=== PATIENT | female | born 1985 | race Caucasian/White ===

== ENCOUNTER 2017-01-27 22:12 | Emergency (ER) | payer BC ==
[~2017-01-27] VITALS: Ht 165.1 cm; Wt 62.0 kg
[2017-01-27 22:16] VITALS: TEMP 36.6; Ht 165.1 cm; Wt 62.0 kg
[2017-01-27] MEDS ORDERED: ONDANSETRON INJ 2 MG/ML 2 ML VIAL IV STA (22:33)
[2017-01-27] MEDS ORDERED: MoRPHine SULFATE 10 MG/ML CARP/VIAL IV STA (22:33)
[2017-01-27] MEDS ORDERED: KETOROLAC TROMETHAMINE 30 MG/ML VIAL IV STA (22:33)
[2017-01-27] MEDS ORDERED: SODIUM CHLORIDE 0.9% 1000ML 1,000 ML IV STA ×2 (22:33)
[2017-01-27 22:46] LABS: BASO % 1.1 %; BASO ABS # 0.07 K/uL (0-0.2); COMPLETE YES; EOS % 8.7 %; LYMPH % 41.4 %; LYMPH ABS # 2.66 K/uL (1.2-3.4); MEAN CORPUSCULAR HEMOGLOBIN 29.2 pg (25-34); MEAN CORPUSCULAR HGB CONC 33.2 g/dl (32-36); MEAN PLATELET VOLUME 9.5 fL (7.4-10.4); MONO % 12.1 %; NEUT % 36.7 %; PLATELET COUNT 252 K/uL (130-400); RED BLOOD COUNT 4.32 M/uL (4.2-5.4); WHITE BLOOD COUNT 6.43 K/uL (4.8-10.8)
[2017-01-27] MEDS ORDERED: FEXO1TAB58 PO (22:59)
[2017-01-27] MEDS ORDERED: SYMIN8045 PO (22:59)
[2017-01-27 23:00] LABS: BUN/CREATININE RATIO 16.6 (10-20); CREATININE 0.85 mg/dl (0.60-1.20); POTASSIUM 3.7 mmol/L (3.5-5.1)
[2017-01-27 23:03] LABS: CALCIUM 8.3 mg/dl (8.5-10.1)
[2017-01-27 23:05] LABS: URINE APPEARANCE CLEAR (CLEAR); URINE BILIRUBIN NEG (NEG); URINE COLOR YELLOW; URINE NITRITE NEG (NEG); URINE PH 6.5 (4.5-7.5); URINE SPECIFIC GRAVITY 1.023 (1.000-1.030); UROBILINOGEN NEG (NEG)
[2017-01-27 23:15] LABS: MANUAL MICROSCOPIC REQUIRED? NO; REVIEW REQ? NO
[2017-01-28] MEDS ORDERED: OXYC1TAB3 PO (01:14)
--- NOTE | 2017-01-28 01:14 | EMERGENCY ROOM VISIT NOTE ---
ED Visit Note First contact with patient: 22:19 CHIEF COMPLAINT: Right flank pain times one day HISTORY OF PRESENT ILLNESS: Patient is a 31-year-old white female who presents emergency department for evaluation of right flank pain. She states that she noticed a dull, deep, aching pain in her right low back after dinner last evening. It was constant, but tolerable. She states that it woke her up a couple times overnight. Today she was at a [employer] [place] all day in [place]. The pain steadily increased throughout the day. At time she noticed a wrapping around to the right lower quadrant. She tried taking ibuprofen and was seen by a chiropractor without relief. She presently rates her pain an 8/ 10. She denies any dysuria, frequency, urgency or hematuria. No nausea or vomiting. No fever or chills. She has had difficulty getting comfortable due to the pain. Her last menstrual period was 3 weeks ago. She just stopped breast-feeding and this is only her second menstrual cycle. She denies any significant gynecologic history, including a history of ovarian cysts. She status post cholecystectomy. REVIEW OF SYSTEMS: Review of systems as per HPI. All other systems reviewed were negative. 10 systems reviewed. PMH: Electronic medical records are reviewed and summarized as above/below. See Problem List. SOCIAL HISTORY: Patient lives at home with her and children. Employed. Nonsmoker. PHYSICAL EXAM: Vital Signs: Reviewed Nurse's notes. CONSTITUTIONAL: Patient is a well-appearing 31-year-old white female who is awake and alert and in no acute distress. EYES: Pupils equal, round, reactive to light and accommodation. EOMs intact without nystagmus. Sclera are anicteric. ENT: Tympanic membranes intact, with normal landmarks. External canals are clear. Oral and nasopharynx are clear. Mucous membranes are moist, no lesions , tongue and gums appear normal. NECK: No bruits auscultated. Supple without lymphadenopathy. No thyromegaly. No meningeal signs. Full active range of motion without discomfort. CARDIOVASCULAR: Regular rate and rhythm, with normal S1 and S2, no murmur or gallop or rub is heard. No carotid bruits auscultated. No JVD. Peripheral pulses easily palpable. RESPIRATORY: Breath sounds equal and clear to auscultation without wheezes, rales, or rhonchi heard. Full and equal chest expansion without accessory muscle use or retractions. ABDOMEN: Bowel sounds are present. Abdomen is soft, scaphoid, nontender and nondistended. There is no pain in the right lower quadrant over McBurney's point. No guarding or rebound. Positive right CVA tenderness. INTEGUMENTARY: No lesions or rash, normal skin turgor. LYMPH: No lymphadenopathy. EMERGENCY DEPARTMENT COURSE: The patient was seen and evaluated as above. IV lock was initiated. She was hydrated with normal saline solution. She was medicated with Zofran 4 mg, Toradol 30 mg and morphine 6 mg IV. CBC with differential, BMP and urinalysis and urine test were performed. Laboratory studies were unremarkable. There is no evidence for leukocytosis or anemia. No electrolyte imbalance or renal function abnormalities noted. Urinalysis was completely clear. test is negative. Given the right flank pain, CT scan of the abdomen and pelvis was ordered. Per [employer], there was no urolithiasis, no hydronephrosis. No free air. Postsurgical changes consistent with cholecystectomy. Appendix was normal in caliber. No adjacent inflammation to suspect appendicitis. Small appendicolith. There was a 2.7 cm right adnexal cyst. CT scan findings were reviewed with the patient. To evaluate this cyst thoroughly, pelvic ultrasound was ordered. Ultrasound was pending at change of shift, and care was signed out to Yeimi Richmond PA-C pending the ultrasound results. Differential diagnoses entertained included UTI, pyelonephritis, renal colic, appendicitis, , ectopic , ovarian cyst, tubo-ovarian abscess, bowel section, perforation, musculoskeletal injury, among others. Problem List Medical Problems: (1) Asthma Status: Chronic Surgical Problems: (1) Hx of cholecystectomy Status: Resolved Current/Historical Medications Scheduled Budesonide/Formoterol Fumarate (Symbicort 80-4.5 Mcg/Act), 1 PUFF PO BID Fexofenadine-Pseudoephedrine (Tegan-D 24 Hour Allergy), 1 TAB PO DAILY Scheduled PRN Oxycodone Ir (Roxicodone Ir), 1-2 TAB PO Q4H PRN for Severe Pain Allergies Coded Allergies: Milk (Verified Allergy, Intermediate, hives, 01/27/17) Uncoded Allergies: PENICILLIN (Allergy, Intermediate, hives, 01/27/17) Vital Signs Date Time Temp Pulse Resp B/P (MAP) Pulse Ox O2 Delivery O2 Flow Rate FiO2 01/28/17 03:05 67 18 102/65 98 01/28/17 01:56 65 18 110/73 98 Room Air 01/27/17 23:54 90 18 111/70 99 Room Air 01/27/17 22:16 36.6 85 18 114/69 100 Room Air Laboratory Results 01/27/17 22:35 Red Blood Count 4.32, Mean Corpuscular Volume 88.0, Mean Corpuscular Hemoglobin 29.2, Mean Corpuscular Hemoglobin Concent 33.2, Mean Platelet Volume 9.5, Neutrophils (%) (Auto) 36.7, Lymphocytes (%) (Auto) 41.4, Monocytes (%) (Auto) 12.1, Eosinophils (%) (Auto) 8.7, Basophils (%) (Auto) 1.1, Neutrophils # (Auto ) 2.36, Lymphocytes # (Auto) 2.66, Monocytes # (Auto) 0.78, Eosinophils # (Auto ) 0.56, Basophils # (Auto) 0.07 01/27/17 22:35 Test 01/27/17 22:35 01/27/17 22:50 White Blood Count 6.43 K/uL (4.8-10.8) Red Blood Count 4.32 M/uL (4.2-5.4) Hemoglobin 12.6 g/dL (12.0-16.0) Hematocrit 38.0 % (37-47) Mean Corpuscular Volume 88.0 fL (80-100) Mean Corpuscular Hemoglobin 29.2 pg (25-34) Mean Corpuscular Hemoglobin Concent 33.2 g/dl (32-36) Platelet Count 252 K/uL (130-400) Mean Platelet Volume 9.5 fL (7.4-10.4) Neutrophils (%) (Auto) 36.7 % Lymphocytes (%) (Auto) 41.4 % Monocytes (%) (Auto) 12.1 % Eosinophils (%) (Auto) 8.7 % Basophils (%) (Auto) 1.1 % Neutrophils # (Auto) 2.36 K/uL (1.4-6.5) Lymphocytes # (Auto) 2.66 K/uL (1.2-3.4) Monocytes # (Auto) 0.78 K/uL (0.11-0.59) Eosinophils # (Auto) 0.56 K/uL (0-0.5) Basophils # (Auto) 0.07 K/uL (0-0.2) RDW Standard Deviation 41.2 fL (36.4-46.3) RDW Coefficient of Variation 12.8 % (11.5-14.5) Immature Granulocyte % (Auto) 0.0 % Immature Granulocyte # (Auto) 0.00 K/uL (0.00-0.02) Anion Gap 9.0 mmol/L (3-11) Est Creatinine Clear Calc Drug Dose 87.9 ml/min Estimated GFR () 107.3 Estimated GFR (Non- 92.6 BUN/Creatinine Ratio 16.6 (10-20) Calcium Level 8.3 mg/dl (8.5-10.1) Urine Color YELLOW Urine Appearance CLEAR (CLEAR) Urine pH 6.5 (4.5-7.5) Urine Specific [place] 1.023 (1.000-1.030) Urine Protein NEG (NEG) Urine Glucose (UA) NEG (NEG) Urine Ketones NEG (NEG) Urine Occult Blood NEG (NEG) Urine Nitrite NEG (NEG) Urine Bilirubin NEG (NEG) Urine Urobilinogen NEG (NEG) Urine Leukocyte Esterase NEG (NEG) Urine Test NEG (NEG) Medications Administered Medications (Trade) Dose Ordered Sig/Brittni Route Start Time Stop Time Status Last Admin Dose Admin Sodium Chloride 1,000 ml @ 999 mls/hr Q1H1M STAT IV 01/27/17 22:33 01/27/17 23:33 DC 01/27/17 22:33 999 MLS/HR Sodium Chloride 1,000 ml @ 250 mls/hr Q4H STAT IV 01/27/17 22:33 01/28/17 02:32 DC 01/27/17 22:33 250 MLS/HR Ondansetron HCl (Zofran Inj) 4 mg NOW STAT IV 01/27/17 22:33 01/27/17 22:35 DC 01/27/17 22:43 4 MG Ketorolac Tromethamine (Toradol Inj) 30 mg NOW STAT IV 01/27/17 22:33 01/27/17 22:35 DC 01/27/17 22:44 30 MG Morphine Sulfate (MoRPHine SULFATE INJ) 6 mg NOW STAT IV 01/27/17 22:33 01/27/17 22:35 DC 01/27/17 23:53 6 MG Morphine Sulfate (MoRPHine SULFATE INJ) 4 mg Q1H PRN IV 01/28/17 01:15 01/28/17 03:19 DC 01/28/17 03:00 4 MG Dicyclomine HCl (Bentyl Cap) 10 mg NOW ONCE PO 01/28/17 02:15 01/28/17 02:16 DC 01/28/17 02:07 10 MG Departure Information Impression Primary Impression: Right ovarian cyst Prescriptions Oxycodone Ir (Roxicodone Ir) 5 Mg Tab 1-2 TAB PO Q4H Y for Severe Pain, #20 TAB For Initial Treatment Prov: Cata Hoyt PA 01/28/17 Referrals Simón Burrows D.O. (PCP) Patient Instructions [facility] Additional Instructions DO NOT drive, drink alcohol, operate machinery, or perform dangerous activities today. You were given medications in the ER that can affect your ability to safely function or operate a vehicle. Oxycodone (OxyIR) 5mg: Take 1-2 pills every four hours as needed for breakthrough pain. Avoid alcohol, operating machinery or dangerous equipment, working on ladders or roofs, DRIVING, making important decisions, or situations where being under the influence may be dangerous. It is recommended to use an [id number] stool softener such as Colace, 100mg twice daily while taking this medication to avoid constipation. Ibuprofen(Motrin, Advil) may be used for fever or pain. Use 600mg every six hours as needed. Take with food. Avoid using more than 2400mg in a 24 hour period. Do not use 2400mg per day for more than three consecutive days without physician direction. Prolonged inappropriate use can lead to stomach upset or ulcers. This is available over the counter and typically comes in 200mg tablets. (AND/OR) Acetaminophen(Tylenol) may be used for fever or pain. Use 1000mg every eight hours as needed. Avoid using more than 3000mg in a 24 hour period. This is available over the counter. Rest and drink plenty of fluids as tolerated. Diet as tolerated. Continue current medications. Return to the ER immediately for worsening or persistent abdominal pain, vomiting, fevers, chest pains, difficulty breathing, black or bloody stools, worsening of your condition, or as needed. Follow up with your [facility] on as you have scheduled on Sunday.
[2017-01-28] MEDS ORDERED: MoRPHine SULFATE 4 MG/ML 1 ML CARP\\VIAL IV PRN (01:15)
[2017-01-28] MEDS ORDERED: DICYCLOMINE HCL 10 MG CAP PO ONE (02:15)
[2017-01-28 03:05] VITALS: BP 102/65; PULSE 67; O2SAT 98
--- NOTE | 2017-01-28 07:33 | DIAGNOSTIC IMAGING REPORT ---
ABDOMEN AND PELVIS CT WITHOUT CONTRAST CT DOSE: 411.90 mGy.cm HISTORY: EVAL R FLANK PAIN TECHNIQUE: Multiaxial CT images of the abdomen and pelvis were performed without the use of intravenous and oral contrast according to the standard department stone protocol. COMPARISON STUDY: None. FINDINGS: The lung bases are clear. Cholecystectomy. The unenhanced liver, spleen, adrenal glands, pancreas, and kidneys are unremarkable. No renal stones or hydronephrosis. No retroperitoneal lymphadenopathy. The bladder, uterus, and left ovary are unremarkable. There is a 2.2 cm right ovarian cyst. Trace pelvic free fluid. This is likely physiologic. Suboptimal evaluation for bowel pathology due to the lack of intravenous and oral contrast. However, there is no definite bowel wall thickening or obstruction. Sigmoid diverticula. Normal caliber appendix. There is suggestion of a 3 mm appendicolith. IMPRESSION: 1. No renal stones or hydronephrosis. 2. No definite bowel wall thickening or obstruction. 3. Cholecystectomy. 4. No evidence for acute appendicitis. There appears to be a 3 mm appendicolith. 5. Trace pelvic free fluid. This is likely physiologic. 6. A 2.2 cm right ovarian cyst. Electronically signed by: Hussein Marx M.D. 01/28/2017 7:32 AM Dictated Date/Time: 01/28/2017 7:28 AM
--- NOTE | 2017-01-28 07:37 | EMERGENCY ROOM VISIT NOTE ---
ED Visit Note This patient was signed out to me by Lucy Hoyt PA-C at change of shift. At that time, patient was awaiting results of a pelvic ultrasound. The patient did request something for "gas pains" and was given Bentyl. This did improve her symptoms. Ultrasound was read by ricarad as below. The patient was informed of all findings and again encouraged to follow up with [facility] as scheduled. She was discharged home in good condition. US PELVIC/ENDOVA.1 cm hypoechoic right ovarian cyst, likely corpus luteum cyst or hemorrhagic cyst. 6-12 week follow up ultrasound can be used to ensure resolution. Bilateral intraovarian flow is present. Uterus and endometrium are normal for age. Small amount of free fluid in the pelvis, likely physiologic. Radiologist: Manuel Wu MD
--- NOTE | 2017-01-28 07:42 | DIAGNOSTIC IMAGING REPORT ---
PELVIC ULTRASOUND, TRANSABDOMINAL AND TRANSVAGINAL HISTORY: Right lower quadrant abdominal pain. EVAL R OVARIAN CYST COMPARISON: Abdomen and pelvis CT 01/27/2017. FINDINGS: Uterus: 8.0 x 5.3 x 6.4 cm. Endometrial stripe: Heterogeneous and slightly thickened measuring up to 1.6 cm. Right ovary: There is a 2.1 cm complex cyst. Normal color flow. Left ovary: Normal in size and demonstrates normal color flow. Miscellaneous:Small amount of pelvic free fluid. IMPRESSION: 1. A 2.1 cm complex cyst within the right ovary. This may represent a corpus luteum or hemorrhagic cyst. Follow-up pelvic ultrasound in 6-8 weeks is recommended to ensure resolution. 2. Slightly thickened and heterogeneous endometrium. This can also be evaluated on follow-up ultrasound. 3. Small amount of pelvic free fluid. Electronically signed by: Hussein Marx M.D. 01/28/2017 7:40 AM Dictated Date/Time: 01/28/2017 7:38 AM
== END 2017-01-28 03:03 | disposition home or self-care (01) ==
LOC: C.EDB 22:14 → C.EDC 01-28 03:03
DX: N83.201 Unspecified ovarian cyst, right side (principal); Z90.49 Acquired absence of other specified parts of digestive tract; J45.909 Unspecified asthma, uncomplicated; Z79.899 Other long term (current) drug therapy